=== PATIENT | female | born 1975 | race Caucasian/White ===

== ENCOUNTER 2021-09-01 22:06 | Emergency (ER) | payer SELFPAY ==
[~2021-09-01] VITALS: Ht 167.6 cm; Wt 63.5 kg
[2021-09-01 22:28] VITALS: BP_SYST 122
--- NOTE | 2021-09-01 22:30 | NUR ---
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 VSS and patient appears in no acute distress at this time. Accompanied by , awaiting available bed, and MD notified of need for MSE.
--- NOTE | 2021-09-01 22:35 | NUR ---
ER at examining patient in the ambulance bay.
[2021-09-02 00:25] VITALS: BP_SYST 139
--- NOTE | 2021-09-02 00:25 | NUR ---
Patient given written and verbal discharge instructions and verbalizes understanding. ER MD discussed with patient the results and treatment provided. Patient in stable condition. ID arm band removed. no Rx of given. Patient educated on pain management and to follow up with PMD. Pain Scale 5/10. Opportunity for questions provided and answered. Medication side effect fact sheet provided.
== END 2021-09-02 00:25 ==
LOC: SED 22:06
DX: U07.1 COVID-19 (principal); G89.29 Other chronic pain; M25.561 Pain in right knee; M25.562 Pain in left knee
CPT/HCPCS: 36415; 99283